=== PATIENT | male | born 2005 | race Hispanic/Latino ===

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

== ENCOUNTER 2025-05-30 00:40 | Emergency (ER) | payer SELFPAY ==
[~2025-05-30] VITALS: Ht 172.7 cm; Wt 88.0 kg
[~2025-05-30 00:40] MED LIST changes: +ONDANSETRON ODT4 MG PO
[2025-05-30 01:00] VITALS: TEMP 97.8
[2025-05-30 01:17] LABS: BASOPHILS % 0.5 % (0.0-1.0); EOSINOPHILS % 1.5 % (0.0-6.0); LYMPHOCYTES % 25.5 % (18.0-39.1); MONOCYTES % 6.8 % (4.4-11.3); NEUTROPHILS % 65.0 % (38.7-80.0); RED CELL DISTRIBUTION WIDTH 12.0 % (11.7-14.4)
[2025-05-30] MEDS ORDERED: SODIUM CHLORIDE 0.9% 100 ML ONE (01:24)
[2025-05-30] MEDS ORDERED: LEVETIRACETAM 500 MG/5 ML VIAL IV ONE (01:24)
[2025-05-30] MEDS: LEVETIRACETAM 1000MG/100ML IV 100 ML IV ONE (01:32)
[2025-05-30 01:37] LABS: EST GLOMERULAR FILTRATION RATE 105.0 ML/MIN (>=60)
[2025-05-30 02:00] VITALS: PULSE 66; RESP 16
[2025-05-30] MEDS ORDERED: KEPPRA500 MG PO (02:21)
[2025-05-30 02:40] VITALS: BP 118/66; PULSE 76; RESP 20; O2SAT 98
== END 2025-05-30 02:42 | disposition home or self-care (01) ==
LOC: ER 01:12
DX: G40.909 Epilepsy, unspecified, not intractable, without status epilepticus (principal)
CPT/HCPCS: 36415; 80053; 85025; 99284; J1953; J7050